=== PATIENT | female | born 1990 | race Caucasian/White ===

== ENCOUNTER 2023-08-07 15:36 | Emergency (ER) | payer OTHER, SELFPAY ==
[2023-08-07] VITALS (7 sets, daily range): BP systolic 118–129; BP diastolic 71–99; PULSE 74–90; RESP 18; TEMP 36.6; O2SAT 99–100; BMI 23.4
--- NOTE | 2023-08-07 15:41 | ED_ITS ---
HPI - General Adult General Chief complaint: Allergic Reaction Stated complaint: Observation Time Seen by Provider: 08/07/23 15:40 Source: patient Mode of arrival: ambulatory Limitations: no limitations History of Present Illness HPI narrative: 32-year-old female presenting to the ER note feeling well. Patient was just in the radiology department getting a CT scan with contrast for neck mass when we were called to evaluate the patient. Seconds after her CT scans the patient began complaining of feeling pressure in her throat, difficulty taking big breaths and a racing heart. She was also very shaky. On initial evaluation, patient is tachycardia with a pulse of 112 oxygen saturation 100%. She is brought to the ER for further evaluation. Related Data Home Medications Medication Instructions Recorded Confirmed No Known Home Medications 08/07/23 08/07/23 Allergies Allergy/AdvReac Type Severity Reaction Status Date / Time No Known Drug Allergies Allergy Verified 08/07/23 15:49 Review of Systems Status of ROS: Reports: 10 or more systems reviewed and unremarkable except as noted in History and below Exam Narrative: Exam Narrative: Well-nourished well-developed patient, very anxious. Tremulous. Alert and oriented. Answers questions appropriately. Affect appropriate. Thoughts are goal oriented and rational. No tangential or magical thinking noted. Patient speaks in full sentences without needing to catch her breath. HEENT: Normocephalic atraumatic. Pupils are equally round reactive to light. Extraocular muscles are intact. Conjunctivae are moist without any icterus noted. Moist mucous membranes. Posterior pharynx is normal. Neck is soft without any lymphadenopathy or thyromegaly. No masses are appreciated. Cardiovascular: Heart is tachycardic with regular rhythm S1 and S2 are present without any murmurs. Lungs: Clear to auscultation bilaterally no wheezes rhonchi or rales are ap preciated. Patient takes deep breaths without any discomfort. Abdomen: Soft and nontender nondistended with normal bowel sounds. Skin: Well perfused without any obvious rashes. Const: Vital Signs, click to edit/add: Vital Signs - 24 hr 08/07/23 15:40 08/07/23 15:45 08/07/23 16:12 Temperature 97.8 F Pulse Rate 79 Pulse Rate [Right Pulse Oximeter] 90 Respiratory Rate 18 Blood Pressure [Le ft Upper Arm] 129/99 H Pulse Oximetry 100 100 100 Oxygen Delivery Me thod Room Air 11/01/23 16:15 Temperature Pulse Rate 76 Pulse Rate [Right Pulse Oximeter] Respiratory Rate Blood Pressure [Le ft Upper Arm] Pulse Oximetry 100 Oxygen Delivery Me thod Course Course ED Course: It does seem that the patient is having a panic attack and not an allergic reaction. Patient was placed on school lunch monitor. IV Ativan was given. Patient was feeling much better. Sensation in her throat was gone and her shakiness was gone. She remained vital is stable. Her pulse did come down from the low 100s to 76. Patient was monitored for 1 hour and had no rash, pruritus, progression of symptoms. We did not treat her for an allergy. Vital Signs Vital signs: Initial Vital Signs Pulse Oximetry 100 08/07/23 15:40 Vital Signs Pulse Oximetry 100 08/07/23 15:40 Temperature 97.8 F 08/07/23 15:45 Pulse Rate 76 08/07/23 16:15 Respiratory Rate 18 08/07/23 15:45 Blood Pressure 129/99 H 08/07/23 15:45 Pulse Oximetry 100 08/07/23 16:15 Oxygen Delivery Method Room Air 08/07/23 15:45 Medical Decision Making MDM Narrative Medical decision making narrative: Do think the patient had an episode of anxiety and not an allergic reaction to the contrast dye. Discharge Plan Discharge Clinical Impression: Anxiety Patient Disposition: Home, Self-Care Condition: Improved Additional Instructions: Your symptoms today were more consistent with anxiety then to a reaction to the contrast dye that you received during her CT scan. This episode should not stop you for receiving contrast dye in the future. Prescriptions: No Action No Known Home Medications Stand Alone Forms: [employer] Info Instructions
--- NOTE | 2023-08-07 16:24 | ED.NURSE ---
Patient reports that symptoms are no longer present and does not want Ativan.
[2023-11-29] MEDS: LORazepam 2 MG/ML inj 0.5 MG IVP (12:53)
== END 2023-08-07 16:58 | disposition home or self-care (01) ==
LOC: ED 16:50
PROVIDERS: Emergency Provider Family Medicine
DX: F41.9 Anxiety disorder, unspecified (principal)
CPT/HCPCS: 94761; 99283; 99284

== ENCOUNTER 2025-08-23 17:54 | Outpatient (CLI) | payer MEDICAID, SELFPAY | END 2025-08-23 17:55 | disposition home or self-care (01) | LOC: NFLDUCREF 17:55 | PROVIDERS: Visit Provider Nurse Practitioner Family | DX: Z13.1 Encounter for screening for diabetes mellitus (principal) | CPT/HCPCS: 83036 ==